=== PATIENT | male | born 1945 | race Two or more races ===

== ENCOUNTER → 2023-08-10 | Day surgery (SDC) | payer MEDICARE ==
[2023-08-07 12:36] LABS: BASOPHILS % 0.5 % (0.0-1.0); EOSINOPHILS # (AUTO) 0.1 (0.0-0.4); HEMATOCRIT 39.6 % (38.2-49.6); HEMOGLOBIN 13.1 g/dL (14.0-18.0); LYMPHOCYTES # (AUTO) 2.6 (1.0-3.2); LYMPHOCYTES % 41.7 % (18.0-39.1); MEAN CORPUSCULAR HEMOGLOBIN 27.9 pg (28-32); MEAN CORPUSCULAR HGB CONC 33.1 g/dL (31-35); MEAN CORPUSCULAR VOLUME 84.4 fL (81-99); MONOCYTES # (AUTO) 0.6 (0.2-0.8); MONOCYTES % 10.3 % (4.4-11.3); NEUTROPHILS # (AUTO) 2.9 (2.1-6.9); NEUTROPHILS % 46.2 % (38.7-80.0); PLATELET COUNT 238 x10e3/uL (140-360); RED BLOOD COUNT 4.69 x10e6/uL (4.3-5.7); RED CELL DISTRIBUTION WIDTH 13.9 % (11.7-14.4); WHITE BLOOD COUNT 6.23 x10e3/uL (4.8-10.8)
[2023-08-07 13:05] LABS: ANION GAP 15.4 mmol/L (8-16); BILIRUBIN,TOTAL 0.3 mg/dL (0.2-1.2); CALCIUM 9.9 mg/dL (8.4-10.2); CREATININE, SERUM 0.82 mg/dL (0.72-1.25); POTASSIUM 4.4 mmol/L (3.5-5.1)
[~2023-08-10] MED LIST: ACETAMINOPHEN 1000 MG/100 ML IV ONE; ASPIRIN81 MG PO; BUPIVACAINE 0.25% 30ML SDV ONE; DEXMEDETOMIDINE HCL 200 MCG/2 ML VIAL ONE; FAMOTIDINE 20 MG/2 ML VIAL IV ONE; FENTANYL CITRATE/PF 100MCG/2 ML INJ ONE; FLOMAX0.4 MG PO; HYDROCODONE/APAP 7.5MG-325MG 1 EA TAB ONE; LACTATED RINGER'S 1,000 ML ONE; LIDOCAINE HCL 2% LOCAL INJ 5 ML SDV VIAL INJ ONE; LOSARTAN POTASS25 MG PO; METFORMIN HCL500 MG PO; MULTI-VITAMIN1 EACH PO; ONDANSETRON HCL INJ 2MG/ML 2ML 2 MG/ML VIAL ONE; PROPOFOL IV EMULSION 10 MG/ML 20 ML VIAL ONE; ROCURONIUM BROMIDE 10 MG/ML 5ML VIAL IV ONE; SEVOFLURANE INHAL SOLN 250 ML PEN BTL ONE; SODIUM CHLORIDE 0.9% INJ 100 ML BAG ONE; SUGAMMADEX SODIUM 200 MG/2 ML VIAL IV ONE
[2023-08-10] MEDS: HYDROCODONE/APAP 7.5MG-325MG 1 EA TAB PO ONE (10:55)
[2023-08-10 11:15] VITALS: BP 135/84; PULSE 65; RESP 15; O2SAT 98
== END | disposition home or self-care (01) ==
LOC: OR 06:53
PROVIDERS: ATTEND Surgery
DX: K80.10 Calculus of gallbladder with chronic cholecystitis without obstruction (principal); I10 Essential (primary) hypertension; E11.9 Type 2 diabetes mellitus without complications; Z01.810 Encounter for preprocedural cardiovascular examination; Z01.812 Encounter for preprocedural laboratory examination; Z01.818 Encounter for other preprocedural examination; Z79.82 Long term (current) use of aspirin; Z79.84 Long term (current) use of oral hypoglycemic drugs; Z79.899 Other long term (current) drug therapy; Z87.440 Personal history of urinary (tract) infections
CPT/HCPCS: 36415 ×2; 47562; 71046; 80053; 82948; 83036; 85025; 88304; 93005; C1766; J0131; J2001; J2405; J2704; J3010; J7050; J7121

== ENCOUNTER → 2024-03-03 | Day surgery (SDC) | payer MEDICARE ==
[2024-02-25 12:54] LABS: BASOPHILS % 0.3 % (0.0-1.0); EOSINOPHILS # (AUTO) 0.1 (0.0-0.4); EOSINOPHILS % 0.9 % (0.0-6.0); HEMATOCRIT 41.7 % (38.2-49.6); HEMOGLOBIN 12.7 g/dL (14.0-18.0); LYMPHOCYTES # (AUTO) 3.3 (1.0-3.2); LYMPHOCYTES % 48.5 % (18.0-39.1); MEAN CORPUSCULAR HEMOGLOBIN 27.7 pg (28-32); MEAN CORPUSCULAR HGB CONC 30.5 g/dL (31-35); MEAN CORPUSCULAR VOLUME 90.8 fL (81-99); MONOCYTES # (AUTO) 0.5 (0.2-0.8); MONOCYTES % 7.9 % (4.4-11.3); NEUTROPHILS # (AUTO) 2.9 (2.1-6.9); NEUTROPHILS % 42.1 % (38.7-80.0); PLATELET COUNT 226 x10e3/uL (140-360); RED BLOOD COUNT 4.59 x10e6/uL (4.3-5.7); RED CELL DISTRIBUTION WIDTH 13.7 % (11.7-14.4); WHITE BLOOD COUNT 6.82 x10e3/uL (4.8-10.8)
[~2024-03-03] MED LIST changes: -ACETAMINOPHEN 1000 MG/100 ML IV ONE; -BUPIVACAINE 0.25% 30ML SDV ONE; +COLESTIPOL HCL1 GM PO; -DEXMEDETOMIDINE HCL 200 MCG/2 ML VIAL ONE; -FAMOTIDINE 20 MG/2 ML VIAL IV ONE; -FENTANYL CITRATE/PF 100MCG/2 ML INJ ONE; +FINASTERIDE5 MG PO; -HYDROCODONE/APAP 7.5MG-325MG 1 EA TAB ONE; -ONDANSETRON HCL INJ 2MG/ML 2ML 2 MG/ML VIAL ONE; -ROCURONIUM BROMIDE 10 MG/ML 5ML VIAL IV ONE; -SEVOFLURANE INHAL SOLN 250 ML PEN BTL ONE; -SODIUM CHLORIDE 0.9% INJ 100 ML BAG ONE; -SUGAMMADEX SODIUM 200 MG/2 ML VIAL IV ONE
[2024-03-03 07:38] VITALS: TEMP 97.5
[2024-03-03 07:50] VITALS: BP 127/70; PULSE 70; RESP 16; O2SAT 98
== END | disposition home or self-care (01) ==
LOC: OR 05:55
PROVIDERS: ATTEND Internal Medicine Gastroenterology
DX: Z12.11 Encounter for screening for malignant neoplasm of colon (principal); K57.30 Diverticulosis of large intestine without perforation or abscess without bleeding; I25.10 Atherosclerotic heart disease of native coronary artery without angina pectoris; I10 Essential (primary) hypertension; E78.5 Hyperlipidemia, unspecified; E11.9 Type 2 diabetes mellitus without complications; N40.0 Benign prostatic hyperplasia without lower urinary tract symptoms; Z01.810 Encounter for preprocedural cardiovascular examination; Z01.812 Encounter for preprocedural laboratory examination; Z79.82 Long term (current) use of aspirin; Z79.84 Long term (current) use of oral hypoglycemic drugs; Z79.899 Other long term (current) drug therapy; Z87.440 Personal history of urinary (tract) infections
CPT/HCPCS: 36415 ×2; 82948; 83036; 85025; 93005; G0121; J2003; J2704; J7121; 45378

== ENCOUNTER 2024-09-18 18:36 | Inpatient (IN) | payer MEDICARE ==
[~2024-09-18] VITALS: Ht 170.2 cm; Wt 72.7 kg
[~2024-09-18 18:36] MED LIST changes: -LACTATED RINGER'S 1,000 ML ONE; -LIDOCAINE HCL 2% LOCAL INJ 5 ML SDV VIAL INJ ONE; -PROPOFOL IV EMULSION 10 MG/ML 20 ML VIAL ONE; +SEVOFLURANE INHAL SOLN 250 ML PEN BTL ONE
[2024-09-18 19:00] VITALS: TEMP 98.1
[2024-09-18 19:38] LABS: BILIRUBIN,URINE NEGATIVE (NEGATIVE); CLARITY,URINE SL CLOUDY (CLEAR); COLOR,URINE YELLOW (YELLOW); GLUCOSE, URINE NEGATIVE (NEGATIVE); KETONES,URINE NEGATIVE (NEGATIVE); LEUKOCYTE ESTERASE ,URINE SMALL (NEGATIVE); NITRITE,URINE NEGATIVE (NEGATIVE); PH,URINE 5.5 (5 - 7); PROTEIN,URINE DIPSTICK NEGATIVE (NEGATIVE); URINE UROBILINOGEN 0.2 mg/dL (0.2 - 1)
[2024-09-18 19:50] LABS: BACTERIA,URINE MODERATE /HPF; RBC,URINE 0-5 /HPF (0-5); TRANSITIONAL EPI CELLS,URINE FEW
[2024-09-18 20:23] LABS: BASOPHILS % 0.5 % (0.0-1.0); EOSINOPHILS # (AUTO) 0.1 (0.0-0.4); EOSINOPHILS % 0.8 % (0.0-6.0); HEMATOCRIT 41.6 % (38.2-49.6); HEMOGLOBIN 13.1 g/dL (14.0-18.0); LYMPHOCYTES # (AUTO) 2.7 (1.0-3.2); LYMPHOCYTES % 43.4 % (18.0-39.1); MEAN CORPUSCULAR HEMOGLOBIN 27.4 pg (28-32); MEAN CORPUSCULAR HGB CONC 31.5 g/dL (31-35); MONOCYTES # (AUTO) 0.6 (0.2-0.8); MONOCYTES % 9.6 % (4.4-11.3); NEUTROPHILS # (AUTO) 2.8 (2.1-6.9); NEUTROPHILS % 45.2 % (38.7-80.0); PLATELET COUNT 236 x10e3/uL (140-360); RED BLOOD COUNT 4.78 x10e6/uL (4.3-5.7); RED CELL DISTRIBUTION WIDTH 13.8 % (11.7-14.4); WHITE BLOOD COUNT 6.17 x10e3/uL (4.8-10.8)
[2024-09-18 20:47] LABS: ANION GAP 14.9 mmol/L (8-16); BILIRUBIN,TOTAL 0.3 mg/dL (0.2-1.2); CALCIUM 9.6 mg/dL (8.4-10.2); CREATININE, SERUM 0.83 mg/dL (0.72-1.25); POTASSIUM 4.9 mmol/L (3.5-5.1); TOTAL PROTEIN 8.2 g/dL (6.5-8.1)
[2024-09-18] MEDS ORDERED: ONDANSETRON HCL INJ 2MG/ML 2ML 2 MG/ML VIAL IV PRN (21:30)
[2024-09-18] MEDS ORDERED: ACETAMINOPHEN 325 MG TAB PO PRN (21:30)
[2024-09-18 22:26] VITALS: PULSE 81; RESP 17
[2024-09-18 23:46] VITALS: BP 108/55; PULSE 65; RESP 18; TEMP 97.9; O2SAT 100
[2024-09-19] VITALS (8 sets, daily range): BP systolic 108–147; BP diastolic 55–83; PULSE 65–72; RESP 16–18; TEMP 97.3–97.9; O2SAT 100
[2024-09-19] MEDS ORDERED: PIOGLITAZONE HC45 MG PO (04:19)
[2024-09-19 06:35] LABS: ALBUMIN 3.5 g/dL (3.5-5.0); ALBUMIN/GLOBULIN RATIO 0.9 (0.8-2.0); BILIRUBIN,TOTAL 0.3 mg/dL (0.2-1.2); CALCIUM 8.9 mg/dL (8.4-10.2); CREATININE, SERUM 0.81 mg/dL (0.72-1.25); TOTAL PROTEIN 7.2 g/dL (6.5-8.1)
[2024-09-19 06:40] LABS: BASOPHILS % 0.4 % (0.0-1.0); EOSINOPHILS # (AUTO) 0.1 (0.0-0.4); EOSINOPHILS % 1.2 % (0.0-6.0); HEMATOCRIT 43.4 % (38.2-49.6); HEMOGLOBIN 13.2 g/dL (14.0-18.0); LYMPHOCYTES % 40.8 % (18.0-39.1); MEAN CORPUSCULAR HEMOGLOBIN 28.2 pg (28-32); MEAN CORPUSCULAR HGB CONC 30.4 g/dL (31-35); MEAN CORPUSCULAR VOLUME 92.7 fL (81-99); MONOCYTES # (AUTO) 0.7 (0.2-0.8); MONOCYTES % 9.6 % (4.4-11.3); NEUTROPHILS # (AUTO) 3.5 (2.1-6.9); NEUTROPHILS % 47.5 % (38.7-80.0); PLATELET COUNT 196 x10e3/uL (140-360); RED BLOOD COUNT 4.68 x10e6/uL (4.3-5.7); RED CELL DISTRIBUTION WIDTH 13.9 % (11.7-14.4)
[2024-09-20] VITALS (9 sets, daily range): BP systolic 104–146; BP diastolic 64–85; PULSE 71–95; RESP 16–20; TEMP 97.3–98.2; O2SAT 96–100
[2024-09-20] MEDS ORDERED: LIDOCAINE HCL 2% LOCAL INJ 5 ML SDV VIAL INJ ONE (10:58)
[2024-09-20] MEDS ORDERED: FENTANYL CITRATE/PF 100MCG/2 ML INJ ONE (10:58)
[2024-09-20] MEDS ORDERED: SUCCINYLCHOLINE CHLORIDE 20 MG/ML 10ML VIAL ONE (10:59)
[2024-09-20] MEDS ORDERED: PROPOFOL IV EMULSION 10 MG/ML 20 ML VIAL ONE (10:59)
[2024-09-20] MEDS ORDERED: ROCURONIUM BROMIDE 1 ML IV ONE (10:59)
[2024-09-20] MEDS ORDERED: HYDROMORPHONE 2MG/ML ONE (12:05)
[2024-09-20] MEDS ORDERED: KETOROLAC TROMETHAMINE 30 MG/ML VIAL ONE (12:10)
[2024-09-20] MEDS ORDERED: ONDANSETRON HCL INJ 2MG/ML 2ML 2 MG/ML VIAL ONE (12:10)
[2024-09-20] MEDS ORDERED: DEXAMETHASONE SOD PHOS INJ 4 MG/ML SDV ONE (12:10)
[2024-09-20] MEDS ORDERED: ACETAMINOPHEN 1000 MG/100 ML 100 ML IV ONE (12:25)
[2024-09-20] MEDS ORDERED: LABETALOL HCL 20 ML ONE (12:26)
[2024-09-20] MEDS ORDERED: ACETAMINOPHEN 1000 MG/100 ML IV PRN (14:30)
[2024-09-20] MEDS ORDERED: DIPHENHYDRAMINE HCL 25 MG CAP PO PRN (14:30)
[2024-09-20] MEDS ORDERED: ONDANSETRON HCL INJ 2MG/ML 2ML 2 MG/ML VIAL IV PRN (14:30)
[2024-09-20] MEDS: SODIUM CHLORIDE 0.9% 1000ML 1,000 ML IV SCH (14:56)
[2024-09-20] MEDS: ACETAMINOPHEN/CODEINE 300MG - 30MG TAB PO PRN (14:56)
[2024-09-20] MEDS: PHENAZOPYRIDINE HCL 100 MG TAB PO PRN (20:22)
[2024-09-20] MEDS: METFORMIN HCL 500 MG TAB CR PO ONE (21:42)
[2024-09-21] VITALS (11 sets, daily range): BP systolic 93–135; BP diastolic 47–82; PULSE 43–100; RESP 16–18; TEMP 97.7–98.5; O2SAT 94–100
[2024-09-21 08:15] LABS: BASOPHILS % 0.1 % (0.0-1.0); HEMATOCRIT 35.9 % (38.2-49.6); HEMOGLOBIN 11.2 g/dL (14.0-18.0); LYMPHOCYTES # (AUTO) 2.4 (1.0-3.2); LYMPHOCYTES % 15.1 % (18.0-39.1); MEAN CORPUSCULAR HEMOGLOBIN 27.9 pg (28-32); MEAN CORPUSCULAR HGB CONC 31.2 g/dL (31-35); MEAN CORPUSCULAR VOLUME 89.5 fL (81-99); MONOCYTES # (AUTO) 1.3 (0.2-0.8); MONOCYTES % 8.2 % (4.4-11.3); NEUTROPHILS % 76.1 % (38.7-80.0); PLATELET COUNT 214 x10e3/uL (140-360); RED BLOOD COUNT 4.01 x10e6/uL (4.3-5.7)
[2024-09-21 08:38] LABS: ANION GAP 13.8 mmol/L (8-16); CALCIUM 8.2 mg/dL (8.4-10.2); CREATININE, SERUM 0.76 mg/dL (0.72-1.25); POTASSIUM 3.8 mmol/L (3.5-5.1)
[2024-09-21] MEDS: METFORMIN HCL 500 MG TAB PO SCH (08:56)
[2024-09-21] MEDS: PIOGLITAZONE HCL 15 MG TAB PO SCH (08:57)
[2024-09-21] MEDS: LOSARTAN POTASSIUM 25 MG TAB PO SCH (08:57)
[2024-09-21] MEDS: FINASTERIDE 5 MG TAB PO SCH (09:00)
[2024-09-21] MEDS: COLESTIPOL HCL 1 G TAB PO SCH (09:00)
[2024-09-21] MEDS ORDERED: DEXTROSE 50% SYRINGE 50 ML IV PRN (10:00)
[2024-09-21] MEDS ORDERED: MAGNESIUM HYDROXIDE 30 ML UDC PO PRN (10:15)
[2024-09-21] MEDS: INSULIN LISPRO 100 UNIT/1 ML 3ML VIAL SQ SCH (11:30)
[2024-09-21] MEDS: MEROPENEM 1 GM in SODIUM CHLORIDE 0.9% 100 ML IV SCH (21:31)
[2024-09-22] VITALS (13 sets, daily range): BP systolic 103–146; BP diastolic 48–99; PULSE 76–94; RESP 18–19; TEMP 97.4–98.1; O2SAT 94–100
[2024-09-22 05:33] LABS: BASOPHILS % 0.2 % (0.0-1.0); EOSINOPHILS # (AUTO) 0.1 (0.0-0.4); EOSINOPHILS % 0.7 % (0.0-6.0); HEMATOCRIT 33.4 % (38.2-49.6); HEMOGLOBIN 10.7 g/dL (14.0-18.0); LYMPHOCYTES # (AUTO) 3.6 (1.0-3.2); LYMPHOCYTES % 33.6 % (18.0-39.1); MEAN CORPUSCULAR HEMOGLOBIN 27.5 pg (28-32); MEAN CORPUSCULAR VOLUME 85.9 fL (81-99); MONOCYTES # (AUTO) 1.1 (0.2-0.8); MONOCYTES % 10.4 % (4.4-11.3); NEUTROPHILS # (AUTO) 5.9 (2.1-6.9); NEUTROPHILS % 54.6 % (38.7-80.0); PLATELET COUNT 194 x10e3/uL (140-360); RED BLOOD COUNT 3.89 x10e6/uL (4.3-5.7); RED CELL DISTRIBUTION WIDTH 14.2 % (11.7-14.4); WHITE BLOOD COUNT 10.71 x10e3/uL (4.8-10.8)
[2024-09-22 06:00] LABS: CREATININE, SERUM 0.69 mg/dL (0.72-1.25)
[2024-09-23] VITALS: BP 103/48; PULSE 81; RESP 18; TEMP 97.7; O2SAT 100
[2024-09-23 04:00] VITALS: BP 99/59; PULSE 77; RESP 18; TEMP 97.5; O2SAT 100
[2024-09-23 06:21] LABS: BASOPHILS % 0.2 % (0.0-1.0); EOSINOPHILS # (AUTO) 0.2 (0.0-0.4); EOSINOPHILS % 1.8 % (0.0-6.0); HEMATOCRIT 32.2 % (38.2-49.6); HEMOGLOBIN 10.4 g/dL (14.0-18.0); LYMPHOCYTES % 32.2 % (18.0-39.1); MEAN CORPUSCULAR HEMOGLOBIN 27.9 pg (28-32); MEAN CORPUSCULAR HGB CONC 32.3 g/dL (31-35); MEAN CORPUSCULAR VOLUME 86.3 fL (81-99); MONOCYTES # (AUTO) 0.9 (0.2-0.8); MONOCYTES % 9.2 % (4.4-11.3); NEUTROPHILS # (AUTO) 5.3 (2.1-6.9); NEUTROPHILS % 56.1 % (38.7-80.0); PLATELET COUNT 191 x10e3/uL (140-360); RED BLOOD COUNT 3.73 x10e6/uL (4.3-5.7); RED CELL DISTRIBUTION WIDTH 14.3 % (11.7-14.4); WHITE BLOOD COUNT 9.41 x10e3/uL (4.8-10.8)
[2024-09-23 06:37] LABS: CALCIUM 8.5 mg/dL (8.4-10.2); CREATININE, SERUM 0.69 mg/dL (0.72-1.25)
[2024-09-23 09:00] VITALS: BP 156/77; PULSE 103; RESP 18; TEMP 98.1; O2SAT 100
[2024-09-23 09:07] VITALS: BP 156/77; PULSE 103; RESP 18; TEMP 98.1; O2SAT 100
[2024-09-23 17:15] VITALS: BP 134/78; PULSE 91; RESP 18; TEMP 98.9; O2SAT 100
[2024-09-23 17:17] VITALS: BP 133/65; PULSE 84; RESP 18; TEMP 98.1; O2SAT 100
== END 2024-09-23 18:47 | disposition home health service (06) | DRG 666 ==
LOC: ER 19:39 → ERHOLD 21:21 → MED/SURG2 23:08 → MED/SURG 09-20 14:33
PROVIDERS: ADMIT Internal Medicine; ATTEND Internal Medicine
PROC: 0T7D8ZZ Dilation of Urethra, Via Natural or Artificial Opening Endoscopic (ICD-10-PCS; 2024-09-20)
PROC: 0T788ZZ Dilation of Bilateral Ureters, Via Natural or Artificial Opening Endoscopic (ICD-10-PCS; 2024-09-20)
PROC: BT141ZZ Fluoroscopy of Kidneys, Ureters and Bladder using Low Osmolar Contrast (ICD-10-PCS; 2024-09-20)
PROC: 0VB08ZZ Excision of Prostate, Via Natural or Artificial Opening Endoscopic (ICD-10-PCS; principal; 2024-09-20 11:54)
PROC: 0TCB8ZZ Extirpation of Matter from Bladder, Via Natural or Artificial Opening Endoscopic (ICD-10-PCS; 2024-09-20 11:54)
PROC: 02HV33Z Insertion of Infusion Device into Superior Vena Cava, Percutaneous Approach (ICD-10-PCS; 2024-09-21)
PROC: B548ZZA Ultrasonography of Superior Vena Cava, Guidance (ICD-10-PCS; 2024-09-21)
DX: N30.00 Acute cystitis without hematuria (principal); N41.2 Abscess of prostate; Z16.24 Resistance to multiple antibiotics; B96.5 Pseudomonas (aeruginosa) (mallei) (pseudomallei) as the cause of diseases classified elsewhere; N40.1 Benign prostatic hyperplasia with lower urinary tract symptoms; R33.8 Other retention of urine; N21.0 Calculus in bladder; N41.9 Inflammatory disease of prostate, unspecified; I10 Essential (primary) hypertension; E11.9 Type 2 diabetes mellitus without complications; Z79.84 Long term (current) use of oral hypoglycemic drugs; R31.0 Gross hematuria; N13.8 Other obstructive and reflux uropathy; R31.29 Other microscopic hematuria; F43.9 Reaction to severe stress, unspecified; N35.912 Unspecified bulbous urethral stricture, male; N32.89 Other specified disorders of bladder; N32.3 Diverticulum of bladder; Z79.02 Long term (current) use of antithrombotics/antiplatelets; Z79.82 Long term (current) use of aspirin; Z79.899 Other long term (current) drug therapy; Z88.1 Allergy status to other antibiotic agents
CPT/HCPCS: 36415; 36569; 71045; 74420; 80048; 80053; 81001; 82948; 83036; 83735; 84443; 85025; 87040; 88304; 88305; 94799; 99284; C1758; J0330; J1100; J1171; J1885; J2003; J2185; J2405; J2543; J7030; J7050

== ENCOUNTER 2024-09-25 22:38 | Emergency (ER) | payer MEDICARE ==
[~2024-09-25] VITALS: Ht 172.7 cm; Wt 72.6 kg
[~2024-09-25 22:38] MED LIST changes: +PIOGLITAZONE HC45 MG PO; -SEVOFLURANE INHAL SOLN 250 ML PEN BTL ONE
[2024-09-25 22:42] VITALS: PULSE 88; RESP 19; TEMP 97.9
[2024-09-25 23:11] VITALS: BP 143/74; PULSE 82; RESP 18; O2SAT 99
== END 2024-09-25 23:13 | disposition home or self-care (01) ==
LOC: ER 22:44
DX: Z45.2 Encounter for adjustment and management of vascular access device (principal); T82.514A Breakdown (mechanical) of infusion catheter, initial encounter; E11.9 Type 2 diabetes mellitus without complications; Z87.442 Personal history of urinary calculi
CPT/HCPCS: 71045; 99282

== ENCOUNTER → 2024-12-06 | Day surgery (SDC) | payer MEDICARE ==
[2024-12-03 15:58] LABS: BASOPHILS % 0.5 % (0.0-1.0); EOSINOPHILS % 0.9 % (0.0-6.0); LYMPHOCYTES % 45.0 % (18.0-39.1); MONOCYTES % 14.0 % (4.4-11.3); NEUTROPHILS % 39.1 % (38.7-80.0); RED CELL DISTRIBUTION WIDTH 13.6 % (11.7-14.4)
[2024-12-03 16:22] LABS: EST GLOMERULAR FILTRATION RATE 94.0 ML/MIN (>=60)
[~2024-12-06] MED LIST changes: +CEFPODOXIME PR200 MG PO; +FENTANYL CITRATE/PF 100MCG/2 ML INJ ONE; +GLUCAGON; +IRON PO; +LIDOCAINE HCL 2% LOCAL INJ 5 ML SDV VIAL INJ ONE; +LOW DOSE ASPIRI81 MG PO; +ONDANSETRON HCL INJ 2MG/ML 2ML 2 MG/ML VIAL ONE; +PROPOFOL IV EMULSION 10 MG/ML 20 ML VIAL ONE
[2024-12-06] MEDS: SODIUM CHLORIDE 0.9% 1000ML 1,000 ML ONE (11:39)
[2024-12-06] MEDS: GENTAMICIN 80MG/NS 100 ML 200 ML IV ONE (11:39)
[2024-12-06] MEDS: KETOROLAC TROMETHAMINE 30 MG/ML VIAL ONE (12:28)
[2024-12-06] MEDS: PHENAZOPYRIDINE HCL 100 MG TAB ONE (12:33)
[2024-12-06 13:10] VITALS: BP 141/81; PULSE 70; RESP 18; O2SAT 99
== END | disposition home or self-care (01) ==
LOC: OR 10:19
PROVIDERS: ATTEND Urology
DX: N35.812 Other bulbous urethral stricture, male (principal); N35.819 Other urethral stricture, male, unspecified site; N32.89 Other specified disorders of bladder; N32.3 Diverticulum of bladder; N39.0 Urinary tract infection, site not specified; N40.1 Benign prostatic hyperplasia with lower urinary tract symptoms; R39.14 Feeling of incomplete bladder emptying; R35.1 Nocturia; R33.9 Retention of urine, unspecified; N21.0 Calculus in bladder; N43.40 Spermatocele of epididymis, unspecified; E11.9 Type 2 diabetes mellitus without complications; I25.10 Atherosclerotic heart disease of native coronary artery without angina pectoris; I10 Essential (primary) hypertension; E78.5 Hyperlipidemia, unspecified; Z88.2 Allergy status to sulfonamides; Z88.1 Allergy status to other antibiotic agents; Z01.810 Encounter for preprocedural cardiovascular examination; Z01.812 Encounter for preprocedural laboratory examination; Z01.818 Encounter for other preprocedural examination; Z79.82 Long term (current) use of aspirin; Z79.84 Long term (current) use of oral hypoglycemic drugs
CPT/HCPCS: 36415 ×2; 52281; 71046; 74420; 80048; 82948; 85025; 87086; 93005; J1580; J1885; J2003; J2405; J2704; J3010; J7030